=== PATIENT | male | born 1950 | race Caucasian/White ===

== ENCOUNTER 2021-06-04 11:16 | Outpatient (CLI) | payer BC | END 2021-06-04 11:17 | disposition home or self-care (01) | LOC: CT 11:16 | PROVIDERS: ATTEND Internal Medicine Gastroenterology | DX: K21.9 Gastro-esophageal reflux disease without esophagitis (principal); R10.13 Epigastric pain; R14.0 Abdominal distension (gaseous); Z85.038 Personal history of other malignant neoplasm of large intestine | CPT/HCPCS: 74178; 82565 ==